=== PATIENT | female | born 2000 | race Caucasian/White ===

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

== ENCOUNTER → 2020-03-25 12:52 | Outpatient (CLI) | payer OTHER | END | disposition home or self-care (01) | LOC: D.US 12:52 | PROVIDERS: ATTEND Nurse Practitioner Family | DX: N63.25 Unspecified lump in the left breast, overlapping quadrants (principal) ==